=== PATIENT | male | born 1980 | race American Indian/Alaskan Native ===

== ENCOUNTER 2018-04-29 09:07 | Outpatient (CLI) | payer BC ==
[2018-04-29] MEDS ORDERED: XYLOCAINE TOPICAL 4% TP ONE ×2 (09:47→12:01)
== END 2018-04-29 09:08 | disposition home or self-care (01) ==
LOC: WOUND 09:07
PROVIDERS: ATTEND Surgery
DX: S51.001A Unspecified open wound of right elbow, initial encounter (principal); Z87.891 Personal history of nicotine dependence; V29.88XA Motorcycle rider (driver) (passenger) injured in other specified transport accidents, initial encounter
CPT/HCPCS: 11043; G0463; 99215

== ENCOUNTER 2018-05-06 08:06 | Outpatient (CLI) | payer BC | END 2018-05-06 08:07 | disposition home or self-care (01) | LOC: WOUND 08:06 | PROVIDERS: ATTEND Surgery | DX: S51.001D Unspecified open wound of right elbow, subsequent encounter (principal); Z87.891 Personal history of nicotine dependence; V29.88XD Motorcycle rider (driver) (passenger) injured in other specified transport accidents, subsequent encounter | CPT/HCPCS: 11042; G0463; 99213 ==

== ENCOUNTER 2018-05-14 11:07 | Outpatient (CLI) | payer BC ==
[2018-05-14] MEDS ORDERED: SILVER NITRATE TP ONE ×2 (12:04→16:03)
== END 2018-05-14 11:08 | disposition home or self-care (01) ==
LOC: WOUND 11:07
PROVIDERS: ATTEND Surgery
DX: S51.001D Unspecified open wound of right elbow, subsequent encounter (principal); Z87.891 Personal history of nicotine dependence; V29.88XD Motorcycle rider (driver) (passenger) injured in other specified transport accidents, subsequent encounter

== ENCOUNTER 2018-05-27 09:48 | Outpatient (CLI) | payer BC | END 2018-05-27 09:49 | disposition home or self-care (01) | LOC: WOUND 09:48 | PROVIDERS: ATTEND Surgery | DX: S51.001D Unspecified open wound of right elbow, subsequent encounter (principal); Z87.891 Personal history of nicotine dependence; V29.88XD Motorcycle rider (driver) (passenger) injured in other specified transport accidents, subsequent encounter | CPT/HCPCS: 99213; G0463 ==